=== PATIENT | male | born 1950 | race African-American/Black ===

== ENCOUNTER 2018-06-30 12:02 | Emergency (ER) | payer MEDICARE, OTHER ==
[2018-06-30 12:31] VITALS: BP 133/96
--- NOTE | 2018-06-30 13:31 | UC ---
Hand/Wrist HPI - HPI Summary HPI Summary: The patient is a 67-year-old male with a 2 month history of progressively worsening left wrist pain. Has had some numbness of his left ring finger. Over the past she days he has noticed marked increase in swelling of his left wrist. He denies any history of injury. He is right handed. He does not have neck pain. He has remote history of DVT in his right leg. - History Of Current Complaint Chief Complaint: UCUpperExtremity Stated Complaint: SWOLLEN L HAND/ARM Time Seen by Provider: 06/30/18 13:18 Hx Obtained From: Patient Onset/Duration: Gradual Onset, Lasting Weeks Severity Initially: Mild Severity Currently: Mild Pain Intensity: 2 Pain Scale Used: 0-10 Numeric Character Of Pain: Aching Aggravating Factor(s): Movement Alleviating Factor(s): Rest Associated Signs And Symptoms: Positive: Swelling, Numbness/Tingling Hands: 1 - swollen, decreased ROM (flexion and ulnar/radial movement decreased - Allergies/Home Medications Allergies/Adverse Reactions: Allergies Allergy/AdvReac Type Severity Reaction Status Date / Time No Known Allergies Allergy Verified 06/30/18 12:31 Home Medications: Home Medications Acetaminophen [Tylenol] 3 tab PO PRN 06/30/18 [History] PMH/Surg Hx/FS Hx/Imm Hx Previously Healthy: Yes Cardiovascular History: Deep Vein Thrombosis - Surgical History Surgical History: Yes Surgery Procedure, Year, and Place: Hernia Repair. Prostate Removed - Family History Known Family History: Positive: Hypertension - Social History Alcohol Use: Rare Substance Use Type: None Smoking Status (MU): Former Smoker Review of Systems Constitutional: Negative Skin: Negative Eyes: Negative ENT: Negative Respiratory: Negative Cardiovascular: Negative Gastrointestinal: Negative Genitourinary: Negative Motor: Negative Neurovascular: Negative Musculoskeletal: Arthralgia Neurological: Negative Psychological: Negative All Other Systems Reviewed And Are Negative: Yes Physical Exam Triage Information Reviewed: Yes Appearance: Well-Appearing, No Pain Distress, Well-Nourished Vital Signs: Initial Vital Signs Temp 98.8 F 06/30/18 12:25 Pulse 75 06/30/18 12:25 Resp 16 06/30/18 12:25 BP 133/96 06/30/18 12:25 Pulse Ox 99 06/30/18 12:25 Vital Signs Reviewed: Yes Eyes: Positive: Conjunctiva Clear ENT: Positive: Hearing grossly normal. Negative: Nasal congestion, Nasal drainage, Trismus, Muffled voice, Hoarse voice Neck: Positive: Supple, Nontender, No Lymphadenopathy Respiratory: Positive: Lungs clear, Normal breath sounds, No respiratory distress, No accessory muscle use Cardiovascular: Positive: RRR, No Murmur Musculoskeletal: Positive: ROM Limited @ - left wrist, Edema @ - dorsum of left wrist Neurological: Positive: Alert Psychological Exam: Normal Skin Exam: Normal Diagnostics - Radiology No standard instances Xray Interpretation: Positive (See Comments) - #. Mild ulnar plus variance which increases stress on the triangular fibrocartilage. Furthermore there is chondrocalcinosis of the triangular fibrocartilage consistent with degeneration. #. 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 #. Negative for fracture. #. 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
--- NOTE | 2018-06-30 14:21 | RAD ---
INDICATION: 2 months LEFT wrist pain now swollen with decreased range of motion. COMPARISON: No relevant prior exams available on the [facility] for comparison. TECHNIQUE: AP, lateral, and oblique views LEFT wrist. REPORT AND IMPRESSION: #. Mild ulnar plus variance which increases stress on the triangular fibrocartilage. Furthermore there is chondrocalcinosis of the triangular fibrocartilage consistent with degeneration. #. 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 #. Negative for fracture. #. Soft tissue swelling most prominent over the volar aspect.
== END 2018-06-30 14:49 | disposition home or self-care (01) ==
LOC: UCEAST 12:02
DX: M19.032 Primary osteoarthritis, left wrist (principal)
CPT/HCPCS: 99213; G0463